=== PATIENT | female | born 1960 | race Caucasian/White ===

== ENCOUNTER 2020-11-11 14:21 | Outpatient (CLI) | payer BC ==
[2020-11-11 15:46] LABS: #Basophils 0.1 10x3/uL (0.0-0.2); #Eosinphils 0.4 10x3/uL (0.0-0.5); #Monocytes 0.5 10x3/uL (0.0-1.1); #Neutrophils 4.2 10x3/uL (1.5-8.4); %Basophils 0.7 % (0.0-2.0); %Eosinophils 5.3 % (0.0-6.0); %Lymphocytes 27.5 % (18.0-47.0); %Monocytes 7.1 % (0.0-10.0); %Neutrophils 59.3 % (40.0-75.0); Hemoglobin 15.3 g/dL (12.0-15.5); Mean Corpuscular HGB CONC 33.6 g/dL (32.0-36.0); Mean Corpuscular Hemoglobin 30.4 pg (27.0-33.0); Mean Corpuscular Volume 90.3 fl (81.6-98.3); Mean Platelet Volume 11.4 fl (7.4-10.4); Platelet Count 341 10x3/uL (150-450); RBC Distribution Width 12.3 % (11.5-14.5); Red Blood Cell (RBC) Count 5.04 10x6/uL (3.90-5.03)
[2020-11-11 16:02] LABS: Anion Gap 14 mmol/L (10-20); BUN (Urea Nitrogen) 12 mg/dL (9.8-20.1); Calc. Creatinine Clearance 0 mL/min (70-130); Calcium 9.8 mg/dL (7.8-10.44); Carbon Dioxide 27 mmol/L (22-29); Chloride 105 mmol/L (98-107); Glucose 87 mg/dL (70-105)
[2020-11-11 16:11] LABS: Sodium 141 mmol/L (136-145)
[2020-11-12 13:56] LABS: SARS-CoV-2 PCR by NAA Not Detected (NotDetected)
== END 2020-11-11 14:22 | disposition home or self-care (01) ==
LOC: LABBT 14:21
PROVIDERS: ATTEND Specialist
DX: Z01.812 Encounter for preprocedural laboratory examination (principal); M79.89 Other specified soft tissue disorders; Z20.822 Contact with and (suspected) exposure to COVID-19
CPT/HCPCS: 80048; 85025; U0003; U0005

== ENCOUNTER 2020-11-16 07:22 | Day surgery (SDC) | payer BC ==
[2020-11-15 11:37] VITALS: BMI 27.4
[2020-11-16] MEDS ORDERED: Ketorolac Tromethamine 30 MG/ML VIAL ONE (08:12)
[2020-11-16] MEDS ORDERED: Acetaminophen 500 MG TAB ONE (08:12)
[2020-11-16] MEDS ORDERED: Lidocaine 1% w/Epinephrine 1:100K 20 ML VIAL ONE (08:17)
[2020-11-16] MEDS ORDERED: Bacitracin Zinc Ointment 30 gm TUBE ONE (08:17)
[2020-11-16] MEDS ORDERED: Bupivacaine PF 0.5% 30 ML VIAL ONE (08:17)
[2020-11-16] MEDS ORDERED: Fentanyl 250 MCG/5 ML VIAL ONE (08:55)
[2020-11-16] MEDS ORDERED: Midazolam HCl 2 mg/2 ml Vial ONE (08:56)
[2020-11-16] MEDS ORDERED: Ondansetron PF 4 MG/2 ML Vial ONE (09:12)
[2020-11-16] MEDS ORDERED: ePHEDrine 50 MG/ML VIAL ONE (09:12)
[2020-11-16] MEDS ORDERED: PROPOFOL 200 MG/20 ML VIAL ONE (09:12)
[2020-11-16] MEDS ORDERED: PHENYLEPHRINE-NS 100 MCG/ML 10 ML SYRINGE ONE (09:12)
[2020-11-16] MEDS ORDERED: Glycopyrrolate 0.2 MG/ML 5 ML SYRINGE ONE (09:12)
[2020-11-16] MEDS ORDERED: Succinylcholine 200 MG/10 ml SYRINGE FS ONE (09:12)
[2020-11-16] MEDS ORDERED: Lidocaine 1% PF 5 ML VIAL ONE (09:12)
== END 2020-11-16 11:05 | disposition home or self-care (01) ==
LOC: SDC 07:22
PROVIDERS: ATTEND Specialist
PROC: 0JB50ZZ Excision of Left Neck Subcutaneous Tissue and Fascia, Open Approach (ICD-10-PCS; principal; 2020-11-16)
DX: D17.0 Benign lipomatous neoplasm of skin and subcutaneous tissue of head, face and neck (principal); I10 Essential (primary) hypertension; B02.21 Postherpetic geniculate ganglionitis; Z86.16 Personal history of COVID-19; Z87.891 Personal history of nicotine dependence; Z79.899 Other long term (current) drug therapy; Z88.2 Allergy status to sulfonamides
CPT/HCPCS: 88304; J0690; J1885; J2250; J2405; J2704; J3010; J3490; S0020